=== PATIENT | male | born 1990 | race Caucasian/White ===

== ENCOUNTER 2022-01-15 16:37 | Emergency (ER) | payer OTHER, SELFPAY ==
[2022-01-15 16:45] VITALS: BP 123/76; BP 160/90; PULSE 93; RESP 18; TEMP 36.6; O2SAT 97; O2SAT 98; BMI 23.7
--- NOTE | 2022-01-15 16:46 | ED_ITS ---
HPI - Overdose General Chief Complaint: ETOH/Substance Use Stated Complaint: OD,NARCAN GIVEN W/GOOD RESULTS,COOP PER EMS Time Seen by Provider: 01/15/22 16:46 Source: patient and EMS Mode of arrival: EMS Limitations: no limitations History of Present Illness HPI Narrative: 31-year-old male presents to the emergency department via ambulance after an unintentional heroin overdose just prior to his arrival. According to patient he went to go order picker some heroin, wanted to get high, got high in an alley. Tells me he used 1 bag of IV heroin. Tells me this is not the 1st time he has overdose. He is not seeking detox does not want to speak to anybody. Has no medical complaints. According to EMS he was found in an alley, a bystander gave intranasal Narcan with good results. Patient was, cooperative in offered no complaints EMS. Patient denying all medical complaints and telling me he just feels thirsty. Denies SI and HI. MD complaint: accidental overdose Onset (ago): minute(s) (20) Related Data Previous Rx's Medication Instructions Recorded naloxone 4 mg/actuation nasal 4 mg intranasal Q2M PRN opioid 01/15/22 spray (Narcan) overdose #2 ea Allergies Allergy/AdvReac Type Severity Reaction Status Date / Time Penicillins [PENICILLINS] Allergy Unknown UNKNOWN Verified 01/15/22 17:08 Review of Systems Review of Systems: Constitutional : No Weight loss, No Fever, No Chills, No Fatigue, No Malaise ENT/Mouth : No sore throat, No Rhinorrhea Eyes: No Eye Pain, No Swelling, No Redness Cardiovascular : No Chest Pain, No SOB, No Dyspnea on Exertion, No Orthopnea, No Edema, No Palpitations Respiratory : No Cough, No Sputum, No Wheezing Gastrointestinal : No Nausea, No Vomiting, No Diarrhea, No Constipation, No abdominal Pain, No Hematochezia, No Melena Genitourinary : No Dysuria, No Urinary Frequency, No Hematuria, Musculoskeletal : No joint pain, No Myalgias, No Joint Swelling Skin : No Skin Lesions, No rash Neuro : No Weakness, No Numbness, No Dizziness, No Headache Psych : No Anxiety/Panic, No Depression No SI or HI All other systems reviewed and are negative Yes all other systems are reviewed and are negative [facility] Past Medical History Attestation statement: The following information was validated with the patient. Source: old records reviewed and nursing notes reviewed Social History Social History Advance Directives: No Advance Directives Information Provided: No Physical Exam Vital Signs: Vital Signs: Last Vital Signs Temp 97.9 F 01/15/22 16:45 Pulse 93 01/15/22 16:45 Resp 18 01/15/22 16:45 BP 123/76 01/15/22 16:45 Pulse Ox 98 01/15/22 16:45 O2 Del Method 01/15/22 16:45 BMI result Body Mass Index 23.7 Vital signs stable Appearance: Alert.? Oriented X3.? No acute distress.? Head: Normocephalic, atraumatic, no step-offs or deformities Eyes: Pupils equal, round and reactive to light.? ENT: Pharynx normal.? Neck: Normal inspection.? Neck supple.? CVS: Normal heart rate and rhythm.? Pulses normal.? Respiratory: No respiratory distress.? Breath sounds normal.? Abdomen: Soft and nontender.? Skin: Skin warm and dry.? Normal skin color.? Normal skin turgor.? Extremities: No lower extremity edema.? No calf ttp. 5/5 strength to bilateral upper and lower extremities Back: No midline tenderness, no C-spine tenderness, full range of motion, no CVA tenderness bilaterally Neuro: Oriented X 3.? No motor deficit.? No sensory deficit. CN 2-12 intact Course Reevaluation(s) Reevaluation #1: Patient remains with no complaints, saturating 98% on room air. Still refusing seeking to recovery room nurse is/care team. For that reason a substance use disorder evaluation was not put in. At this time patient will be discharged home with intranasal Narcan and detox areas in the area. He was given a handout for this. At this time patient will be discharged home advised to return with new or worsening symptoms. Time: 18:08 MDM - Overdose MDM Narrative Medical decision making narrative: 1650 31-year-old male presents with an unintentional heroin overdose just prior to his arrival. Denies SI and HI. Not seeking detox. Does not want to speak to recovery. Physical exam benign. Plan at this time is observation. And close monitoring. Medical Records Attestation: I reviewed the patient's medical records. Lab Data Attestation: I reviewed the patient's lab results. Critical Care Time Critical Care Time Critical Care Time: No Discharge Plan Discharge Clinical Impression: Opiate overdose Patient Disposition: Home, Self-Care Additional Instructions: Take your medications as prescribed. If you were prescribed antibiotics today, it is important that you take your medication to their entirety, do not skip any doses, do not finish them early. Follow-up with your primary care provider this week. Return to the emergency department with new or worsening symptoms. Such as fevers, chills, chest pain, shortness of breath, nausea, vomiting, dizziness, headache, vision changes, lethargy In case of emergency call 911 We offered for you to speak to a recovery room nurse about possible detox options however he refused. We will give you a list of detox is in the area. Narcan has been sent to your pharmacy, this can be lifesaving please have it on you at all times. Prescriptions: New naloxone [Narcan] 4 mg/actuation spray,non-aerosol 4 mg intranasal Q2M PRN (Reason: opioid overdose) Qty: 2 0RF Rx Instructions: spray 1 dose into ONE nostril; alternate nostrils w each dose until help arrives
--- NOTE | 2022-01-15 16:56 | MHC.RECOVSUP ---
? Reason for consult Recovery support o Current location: [facility] o Identified substance use concern: Heroin - Overdose - Support ? Intervention: o Community resources provided o Harm reduction discussion ? Plan: o Patient to follow up with [facility] after discharge ? Additional information: Met with patient talk about recovery.. Patient did not want any services at the moment but took info where to get help
[2022-01-15] MEDS: Ondansetron ODT 4 MG TAB.RAPDIS TRANSLINGU (17:07)
[2022-01-15 18:15] VITALS: RESP 20
== END 2022-01-15 18:15 | disposition home or self-care (01) ==
PROVIDERS: Emergency Provider Internal Medicine
DX: T40.1X1A Poisoning by heroin, accidental (unintentional), initial encounter (principal); Y92.480 Sidewalk as the place of occurrence of the external cause
CPT/HCPCS: 99282; 99283

== ENCOUNTER 2022-08-01 12:31 | Emergency (ER) | payer OTHER, SELFPAY ==
[2022-08-01 12:48] VITALS: BP 150/90; PULSE 88; O2SAT 98
--- NOTE | 2022-08-01 12:49 | MHC.EDTECH ---
attempted to take vitals on patient and have patient post exchange manager to hospital clothes,patient is refusing all care. RN NOTIFIED
--- NOTE | 2022-08-01 12:50 | ED.OVERDOSE ---
HPI - Overdose General Chief Complaint: ETOH/Substance Use Stated Complaint: OD Time Seen by Provider: 08/01/22 12:49 Source: patient Mode of arrival: ambulatory Limitations: no limitations History of Present Illness HPI Narrative: 32 y/o male with history of opiate use disorder, history of overdose in the past who presents to the ER via EMS after he overdosed on the street today. He states he injected 1 bag of heroin and does know what happened after that. He was clean for 1 week prior to this. He was given a total of 16 mg of Narcan. He arrives to the ER vomiting, awake and alert. complaint: accidental overdose Onset (ago): minute(s) Context: Accidental Overdose: wanted to get high Treatments Prior to Arrival: narcan Related Data Previous Rx's Medication Instructions Recorded naloxone 4 mg/actuation nasal 4 mg intranasal Q2M PRN opioid 01/15/22 spray (Narcan) overdose #2 ea Allergies Allergy/AdvReac Type Severity Reaction Status Date / Time Penicillins [PENICILLINS] Allergy Unknown UNKNOWN Verified 01/15/22 17:08 Review of Systems Review of Systems: Constitutional: No Fever, No Chills ENT/Mouth: No sore throat, No Rhinorrhea Cardiovascular: No Chest Pain, No SOB Respiratory: No Cough, No Sputum Gastrointestinal: + Nausea, +Vomiting, No Diarrhea, No abdominal Pain Musculoskeletal: No joint pain, No Myalgias Skin: No Skin Lesions, No rash Neuro: No Dizziness, No Headache Psych: No Anxiety/Panic, No Depression, NO SI Heme/Lymph: No Bruising, No Lymphadenopathy PMFSH Social History Social History Advance Directives: No Advance Directives Information Provided: No Physical Exam Vital Signs: Vital Signs: BMI result Body Mass Index 0.3 Appearance: Alert. Oriented X3. Vomiting clear fluid Eyes: Pupils equal, round and reactive to light. ENT: Pharynx normal. Neck: Normal inspection. Neck supple. CVS: Normal heart rate and rhythm. Pulses normal. Respiratory: No respiratory distress. Breath sounds normal. Abdomen: Soft and nontender. +BS x4 Skin: Skin warm and dry. Normal skin color. Normal skin turgor. No rashes. Extremities: No lower extremity edema. Neuro: Oriented X 3. Grossly normal, nonfocal Course Course Course Narrative: 32-year-old male presents to the ER for evaluation after an unintentional overdose on her when after injecting 1 bag earlier today. 60 mg of Narcan and arrives to the ER vomiting. Declining IV Zofran or sublingual Zofran. He denies any shortness of breath or chest pain. Will monitor closely. Reevaluation(s) Reevaluation #1: Patient been monitored in the ER for 2-1/2 hours. He is awake and alert and stop vomiting while ago. He would like to go home. He is declining detox, does not want stay. Given Narcan to go. Discharged Time: 15:36 Medications Administered Discontinued Medications Generic Name Dose Route Start Last Admin Trade Name Freq PRN Reason Stop Dose Admin Ondansetron HCl 4 mg 08/01/22 12:53 08/01/22 13:25 Ondansetron Odt 4 Mg Tab.Rapdis TRANSLINGU 08/01/22 12:54 Not Given ONCE ONE Discharge Plan Discharge Clinical Impression: Heroin overdose Patient Disposition: Home, Self-Care Instructions: Adult Overdose (ED) Additional Instructions: Do not use heroin, it can kill you. Recommend detox. We have walk[facility] hours at [facility] Prescriptions: No Action naloxone [Narcan] 4 mg/actuation spray,non-aerosol 4 mg intranasal Q2M PRN (Reason: opioid overdose) Qty: 2 0RF Rx Instructions: spray 1 dose into ONE nostril; alternate nostrils w each dose until help arrives
--- NOTE | 2022-08-01 13:03 | HO.SUDE ---
Met with pt in [facility] after pt presented to ED via EMS after accidental overdose in the community. Pt received total 16 mg Narcan BELT TENDER. Pt sitting on stretcher, awake, alert, easily engages in conversation, vomiting. Pt reports using 1 bag heroin, Tim Costagscharissa, IV, BELT TENDER. Pt reports spending more time in recovery recently than using, states I don't use all the time. This is the first time I've gotten high in a week or 2. Pt reports spending time doing normal people stuff. Pt reports hx 10 overdoses, feels similar to past experiences currently. Pt reports 1 ATS admission years ago at [facility]. Pt reports hx Suboxone, states I don't like being dependent on anything. I don't want to take it. Pt educated regarding community resources and supports, requesting to rest and decide course of action at a later time. T/w available as needed.
== END 2022-08-01 15:43 | disposition home or self-care (01) ==
PROVIDERS: Emergency Provider Student in an Organized Health Care Education/Training Program
DX: T40.1X1A Poisoning by heroin, accidental (unintentional), initial encounter (principal); Y92.9 Unspecified place or not applicable
CPT/HCPCS: 99283

== ENCOUNTER 2023-01-05 12:50 | Emergency (ER) | payer OTHER, SELFPAY ==
[2023-01-05 13:10] VITALS: BMI 23.0
--- NOTE | 2023-01-05 13:20 | ED.OVERDOSE ---
HPI - Overdose General Chief Complaint: ETOH/Substance Use Stated Complaint: NARCOTIC USE PER EMS Time Seen by Provider: 01/05/23 13:08 Source: patient Mode of arrival: EMS History of Present Illness HPI Narrative: 32-year-old male with self-reported drug dependency states that he took heroin and cocaine and was dancing in the street, and was brought in by EMS. He denies receiving any Narcan. At this time he denies any suicidal homicidal ideation and is declining any outpatient or inpatient detox services. Related Data Previous Rx's Medication Instructions Recorded naloxone 4 mg/actuation nasal 4 mg intranasal Q2M PRN opioid 01/15/22 spray (Narcan) overdose #2 ea Allergies Allergy/AdvReac Type Severity Reaction Status Date / Time Penicillins [PENICILLINS] Allergy Unknown UNKNOWN Verified 01/15/22 17:08 Review of Systems Review of Systems: Pertinent positives and negatives as stated in HPI PMFSH Past Medical History Source: nursing notes reviewed Social History Social History Advance Directives: No Advance Directives Information Provided: No Physical Exam Vital Signs: Vital Signs: Last Vital Signs Temp 97.9 F 01/05/23 13:22 Pulse 98 01/05/23 13:22 Resp 16 01/05/23 13:22 BP 147/73 H 01/05/23 13:22 Pulse Ox 96 01/05/23 13:22 O2 Del Method Room Air 01/05/23 13:22 BMI result Body Mass Index 23.0 VITAL SIGNS: Reviewed. GENERAL: Well developed, well nourished, in no acute distress, appears to be under the influence of polysubstance. HEAD: Normocephalic/atraumatic EYES: PERRLA, EOMI EARS: Ext canals without abnormality, TMs non-bulging and non-erythematous NOSE: Nares patent bilateral OROPHARYNX: no oral lesions noted, posterior pharynx clear NECK: Supple, no adenopathy LUNGS: Normal breath sounds. No adventitious sounds or accessory muscle use. CARDIOVASCULAR: Regular rate and rhythm without noted murmurs ABDOMEN: Soft, non-tender, non-distended with bowel sounds. MUSCULOSKELETAL: No tenderness, deformities, or effusions noted on gross inspection. EXTREMITIES: No cyanosis, clubbing or edema. SKIN: Inspection of the skin reveals no rashes NEUROLOGIC: Alert and oriented x 4. Strength and sensation to light touch were grossly intact x 4. Medical Decision Making Medical Decision Making MDM Narrative: 32-year-old male who comes in under the influence of poly substances, has no acute complaints at this time, denies any suicidal homicidal ideation and is not interested in any polysubstance use evaluation or Services. He understands that he will be held here for 2 hours of observation, he will be discharged with home Narcan. Patient remains hemodynamically stable and is discharged home with home Narcan. Differential Diagnosis Please see the discussion above Discharge Plan Discharge Clinical Impression: Polysubstance use disorder Patient Disposition: Home, Self-Care Instructions: Polysubstance Abuse (ED) Additional Instructions: Return to the ER for any worsening or recurrent symptoms for which you would like assistance. Prescriptions: No Action naloxone [Narcan] 4 mg/actuation spray,non-aerosol 4 mg intranasal Q2M PRN (Reason: opioid overdose) Qty: 2 0RF Rx Instructions: spray 1 dose into ONE nostril; alternate nostrils w each dose until help arrives
[2023-01-05 13:22] VITALS: BP 147/73; PULSE 98; RESP 16; TEMP 36.6; O2SAT 96
== END 2023-01-05 15:07 | disposition home or self-care (01) ==
PROVIDERS: Emergency Provider Student in an Organized Health Care Education/Training Program
DX: F19.10 Other psychoactive substance abuse, uncomplicated (principal); Z79.899 Other long term (current) drug therapy
CPT/HCPCS: 99283